=== PATIENT | female | born 1970 | race Caucasian/White ===

== ENCOUNTER → 2017-05-24 | Outpatient (CLI) | payer OTHER ==
[~2017-05-24] MED LIST: ADVA500A INH; ADVAI500I PO; ALBU6.7H INH; HYDR-3583 PO
[2017-05-24 10:03] LABS: APTT (PATIENT) 28.6 SEC (24.3-30.1); PROTHROMBIN TIME - PATIENT 10.3 SEC (9.8-11.6)
[2017-05-24 10:06] LABS: AUTOMATED NEUTROPHIL # 6.3 TH/MM3 (1.8-7.7); BASOPHIL # 0.1 TH/MM3 (0-0.2); BASOPHIL % 0.8 % (0.0-2.0); EOSINOPHIL # 0.2 TH/MM3 (0-0.4); EOSINOPHIL % 2.3 % (0.0-4.0); HEMATOCRIT 40.7 % (35.0-46.0); HEMO FLAGS DIFF FINAL; LYMPH % 15.7 % (9.0-44.0); LYMPHOCYTE # 1.3 TH/MM3 (1.0-4.8); MEAN CORPUSCULAR HEMOGLOBIN 29.2 PG (27.0-34.0); MEAN CORPUSCULAR HGB CONC 33.5 % (32.0-36.0); NEUT % 76.2 % (16.0-70.0); PLATELET COUNT 266 TH/MM3 (150-450); RED BLOOD COUNT 4.68 MIL/MM3 (4.00-5.30); RED CELL DISTRIBUTION WIDTH 14.1 % (11.6-17.2); WHITE BLOOD COUNT 8.3 TH/MM3 (4.0-11.0)
[2017-05-24 10:06] LABS: BACTERIA, URINE RARE /hpf; BLOOD, URINE TRACE (NEG); COMMENT (UR) CULT NOT INDICATED; CULTURE IF INDICATED CULT NOT INDICATED; GLUCOSE,URINE NEG (NEG); KETONE, URINE NEG (NEG); MUCUS URINE FEW /lpf (OCC); NITRITE,URINE NEG (NEG); URINE COLOR LIGHT-YELLOW (YELLW/STRAW)
[2017-05-24 10:43] LABS: ANION GAP 8 MEQ/L (5-15); AST (GOT) 18 U/L (15-37); BICARBONATE 28.3 MEQ/L (21.0-32.0); BLOOD UREA NITROGEN 15 MG/DL (7-18); CHLORIDE 99 MEQ/L (98-107); GLOMERULAR FILTRATION RATE 72 ML/MIN (>89); GLUCOSE,FASTING 122 MG/DL (74-99); SODIUM (NA) 135 MEQ/L (136-145)
[2017-05-24 10:44] LABS: ALT (GPT) 30 U/L (10-53)
[2017-05-24 10:47] LABS: ALKALINE PHOSPHATASE 81 U/L (45-117); TOTAL BILIRUBIN ADULT 0.5 MG/DL (0.2-1.0)
--- NOTE | 2017-05-24 10:53 | RADRPT ---
EXAM DATE/TIME: 05/24/2017 10:12 [facility] COMPARISON: No previous studies available for comparison. INDICATIONS : Evaluate for pneumonia, pneumothorax or communicable disease. Pre op neck surgery. MEDICAL HISTORY : asthma SURGICAL HISTORY : None. ENCOUNTER: Initial ACUITY: 1 day PAIN SCORE: 0/10 LOCATION: Bilateral chest FINDINGS: PA and lateral views of the chest demonstrate the lungs to be symmetrically aerated without evidence of mass, infiltrate or effusion. The cardiomediastinal contours are unremarkable. Osseous structure s are intact. CONCLUSION: No acute disease. Suresh Angulo MD on May 24, 2017 at 10:50 Board Certified Radiologist. This report was verified electronically.
[2017-05-24 11:35] LABS: MRSA PCR NEGATIVE (NEGATIVE); STAPH AUREUS PCR NEGATIVE (NEGATIVE)
--- NOTE | 2017-05-24 22:27 | EKG ---
Date Performed: 05/24/2017 Time Performed: 09:31:52 PTAGE: 46 years EKG: Sinus rhythm NORMAL ECG NO PREVIOUS TRACING DOCTOR: Marline Cason Interpretating Date/Time 05/24/2017 22:26:53
== END ==
LOC: CPRE 09:04
PROVIDERS: ATTEND Neurological Surgery
DX: Z01.812 Encounter for preprocedural laboratory examination (principal); Z01.811 Encounter for preprocedural respiratory examination; Z01.810 Encounter for preprocedural cardiovascular examination; M48.02 Spinal stenosis, cervical region; Z01.818 Encounter for other preprocedural examination
CPT/HCPCS: 36415; 71020; 80053; 81001; 85025; 85610; 85730; 87640; 87641; 93005

== ENCOUNTER 2017-05-27 11:05 | Observation (INO) | payer OTHER ==
[~2017-05-27] VITALS: Ht 157.5 cm; Wt 90.1 kg
[~2017-05-27 11:05] MED LIST changes: -ADVAI500I PO; +GELFOAM SIZE 100 ONE; +GENTAMICIN SULFATE 80 MG/2 ML VIAL ONE; -HYDR-3583 PO; +MICROFIBRILLAR COLLAGEN HEMOSTAT 70 X 35 MM BANDAGE ONE; +THROMBIN (TOPICAL) 5,000 UNIT VIAL ONE; +ceFAZolin 2 GM PREMIX 50 ML ONE
[2017-05-27] MEDS ORDERED: ONDANSETRON HCL 4 MG/2 ML VIAL IV ONE (12:00)
[2017-05-27] MEDS ORDERED: MIDAZOLAM HCL 2 MG/2 ML VIAL IV ONE (12:00)
[2017-05-27] MEDS ORDERED: MORPHINE SULFATE 4 MG/ML INJ IV ONE (12:00)
[2017-05-27] MEDS ORDERED: LACTATED RINGER'S 1000 ML INJ 1,000 ML IV ONE (12:00)
[2017-05-27] MEDS ORDERED: SODIUM CHLOR 0.9% 250 ML INJ 250 ML ONE (12:00)
[2017-05-27] MEDS ORDERED: LIDOCAINE HCL 1% PF 5 ML SYRINGE OTHER ONE (12:00)
[2017-05-27] MEDS ORDERED: VANCOMYCIN HCL 1000 MG VIAL ONE (12:00)
[2017-05-27] MEDS ORDERED: ROCURONIUM INJ 50 MG/5 ML SYRINGE IV PUSH ONE (12:00)
[2017-05-27] MEDS ORDERED: DEXAMETHASONE SOD PHOS 4 MG/ML VIAL IV ONE (12:00)
[2017-05-27] MEDS ORDERED: PROPOFOL 200 MG/20 ML AMP IV ONE (12:00)
[2017-05-27] MEDS ORDERED: INSULIN HUMAN REGULAR 1,000 UNITS/10 ML VIAL SQ PRN (12:45)
[2017-05-27] MEDS ORDERED: LACTATED RINGER'S 1000 ML IV PRN (12:45)
[2017-05-27] MEDS ORDERED: SODIUM CHLORID 0.9% 500 ML IV PRN (12:45)
[2017-05-27] MEDS ORDERED: METOPROLOL TARTRATE 25 MG TAB PO PRN (12:45)
[2017-05-27] MEDS ORDERED: SODIUM CHLOR 0.9% 1000 ML INJ 1,000 ML IV SCH (12:45)
[2017-05-27] MEDS ORDERED: CHLORHEXIDINE GLUCONATE 2 % 1 PACK (2 CLOTHS) TOPICAL PRN (12:45)
[2017-05-27] MEDS ORDERED: VANCOMYCIN HCL 1000 MG ON-CALL/NS 250 ML IV SCH ×2 (12:45)
[2017-05-27] MEDS ORDERED: POVIDONE IODINE 5% (ANTISEPSIS KIT) 4 APPLICATIONS EACH NARE PRN (12:45)
[2017-05-27] MEDS ORDERED: PROPOFOL 500 MG/50 ML INJ 100 ML ONE (14:07)
[2017-05-27] MEDS: SODIUM CHLOR 0.9% 1000 ML INJ 1,000 ML IV SCH (14:39)
[2017-05-27] MEDS ORDERED: MORPHINE SULFATE 4 MG/ML INJ IV PUSH PRN (14:45)
[2017-05-27] MEDS ORDERED: ACETAMINOPHEN 325 MG TAB PO PRN (14:45)
[2017-05-27] MEDS ORDERED: BISACODYL 10 MG SUPP RECTAL PRN (14:45)
[2017-05-27] MEDS ORDERED: GLUCAGON 1 MG/ML VIAL OTHER PRN (14:45)
[2017-05-27] MEDS ORDERED: MENTHOL LOZENGE BUCCAL PRN (14:45)
[2017-05-27] MEDS ORDERED: DEXTROSE 50% IN WATER 50 ML VIAL(D50) IV PUSH PRN (14:45)
[2017-05-27] MEDS ORDERED: cloNIDine HCL 0.1 MG TAB PO/NG PRN (14:45)
[2017-05-27] MEDS ORDERED: RESP: ALBUTEROL 2.5 MG/3 ML NEB (PRN) INH (14:45)
[2017-05-27] MEDS: DEXAMETHASONE SOD PHOS 4 MG/ML VIAL IV PUSH SCH ×2 (15:00→20:27)
[2017-05-27] MEDS: ceFAZolin 2 GM PREMIX 50 ML IV SCH ×2 (15:00→22:12)
[2017-05-27] MEDS ORDERED: ALBUTEROL SULFATE 90 MCG/ACT HFA 8 GM INHALER INH PRN (15:00)
[2017-05-27] MEDS: INSULIN ASPART SUPPLEMENTAL SCALE SQ SCH ×2 (17:00→20:27)
[2017-05-27] MEDS ORDERED: DO NOT ADM ANY ANTICOAGULANT DRUGS PRN (18:04)
--- NOTE | 2017-05-27 18:12 | PD.OP ---
Operative Report Date of Surgery: May 27, 2017 Preoperative Diagnosis: C5-6, C6-7 cervical disk herniations Postoperative Diagnosis: C5-6, C6-7 cervical disk herniations Procedure: C5-6, C6-7 anterior cervical discectomy, interbody arthodhesis using PEEK cage filled with autologous bone graft, Simplicity plate and screws. Anesthesia: general Surgeon: Stone Sunshine Respiratory Therapy Director(s): Lu Whitney Operation and Findings: INDICATIONS FOR THE PROCEDURE Ms Dick is a 46 year-old female who presented with intractable neck pain and clinical evidence of C6 and C7 upper extremity radiculopathy. She was found to have disk herniations at C5-6 and C6-7. She has failed maximum nonsurgical management including multiple modalities of conservative treatment as well as pain management interventions by an interventional pain specialist. A surgical decompression and arthrodhesis were indicated. The [id number] details of the procedure, indications, alternatives, risks and potential complications were fully discussed with the patient. The patient fully understood. All The questions were answered. No guarantees were given. The patient voiced requesting the procedure and provided informed consents. The patient was offered the alternative of delaying the procedure and continuing with nonsurgical management. DETAILS OF THE SURGICAL PROCEDURE After the induction of general anesthesia, endotracheal intubation was performed. A Avendano catheter, bilateral JONATHAN hose, and sequential compression devices were placed and kept throughout the procedure. Placement of electrodes for neurophysiological monitoring of the somato sensorial evoked potentials. motor evoked potentials, and EMG as well as laryngeal nerve monitoring was achieved. The patient was positioned supine on a Camden table with the head over a gel doughnut. All pressure points were carefully padded with eggcrate mattress. The eyes were tapped shut after ointment was applied by the anesthesiologist to prevent corneal abrasion. A Colin hugger was placed over the exposed lower body to maintain control of the core body temperature. The electrophysiological team placed the needles and electrodes in their proper location and baseline SSEP's and motor evoked potentials were registered prior and after positioning and endotracheal intubation. The anterior cervical region was prepped and draped in the usual sterile fashion. A localizing x-ray was performed with a C-arm. The surgical procedure was performed in several steps as follow: SURGICAL APPROACH A skin incision was made along the inferior cervical crease with a #10 blade. The dissection was carried out through the platysma exposing the sternocleidomastoid muscle. The cervical spine was approached following the fascial layers of the neck just medial to the anterior border of the sternocleidomastoid and carotid sheath by a combination of sharp and dull dissection. The omohyoid muscle was identified and carefully dissected laterally and the deep cervical fascia was carefully opened. The longus colli muscles were retracted to each side of the midline. A marker was placed at the disc space C5-6 and a cross-table lateral x-ray performed with a C-arm. SURGICAL DECOMPRESSION In order to decompress the anterior surface of the spinal cord it was necessary to preform a microsurgical resection of the disk at C5-6 and C6-7. At this point in the procedure the operating microscope was draped in the usual sterile fashion and brought to the field. The rest of the surgical procedure was performed using microdissection technique with the exception of the closure. Under the operative microscopic, a self-retaining retractor was placed underneath the longus colli muscle. Anterior osteophite spurs werte carefully removed with the Leksell. The annulus at C5-6 and C6-7 were incised with a #15 blade and microdiscectomy was then carefully carried out using angled curets and pituitary forceps. There were osteophitic/disk herniation complexes mass effect and compression of the dural sac and nerve roots. The posterior longitudinal ligament was then elevated with an angled curet and incised with a 15 bladed knife. A careful resection of the posterior longitudinal ligament was carried out using a thin footplate 2 mm Kerrison. A nerve hook was used to assess the epidural space behind the vertebral bodies C5, C6, and C7 in search for residual disk fragments. The margins of the posterior endplates at C5-6 and C6-7 were carefully drilled and undercut with a TPS drill under high magnification. The decompression was then carried out laterally, and a bilateral foraminotomy was performed with a 2mm thin foot Kerrison. Then the vertebral bodies above and below the disk space were undercut using a 2 mm thin foot Kerrison. The epidural space was the systematically assessed with a nerve hook in search for disk fragments of scarr tissue. An excellent decompression was achieved in both, the dural sac and bilateral exiting nerve roots. The incision was then irrigated with a large amount of antibiotic solution INTERBODY ARTHRODHESIS In order to avoid collapse of the disk space which would result in bilateral foraminal stenosis, and to increase the chances of a successful fusion, it was necessary to place an interbody cage filled with autologous bone. At this point of the procedure, the superior and inferior endplates were then evenly decorticated with a TPS drill. The use of a drill in combination with a curette allowed me to systematically remove the cartilaginous endplates, exposing healthy bone for the interbody arthrodesis. Fourteen millimeters distraction pins were then placed at the vertebral bodies adjacent to the disk space, and gentle distraction was applied. The size of the interbody cage was then assessed using different size spacers, and a rasp was used to ensure no residual cartilage. A PEEK cage of the appropriate size was selected, and the interbody arthrodesis was then preformed by carefully impacting a PEEK cage filled with autologous bone graft to the disc spaces C5-6 and C6-7. A 6mm cage was used at C5-6, and a 7mm cage was used at C6-7. An excellent position of the cage was achieved. This was was confirmed anatomically by feeling the space posterior to the implant and distance to the anterior surface of the dural sac. Radiological confirmation of the position was performed with a cross lateral xray performed with the C-arm. INTERNAL INSTRUMENTAL FIXATION At this point of the procedure, the distance between the vertebral bodies was carefully measures, and a Simplicity plate was brought to the field and presented in front of the vertebral bodies C5, C6, and C7. Chemical Packager holes were then drilled using the TPS drill, and the plate was then secured to the spine using self-drilling, self-tapping screws. Initially, the inferior right screw was inserted, followed by placement of the contralateral upper screw. The remanding screws were sequentially placed in a contra-lateral fashion. A proper purchase was achieved with all screws and the position of the cage, plate and screws, and alignment of the spine was assessed anatomically by direct visualization, and radiologically by performing a cross lateral xray of the cervical spine with the C-arm. CLOSURE The incision was irrigated with several liters of antibiotic solution. Hemostasis was achieved with a bipolar. The screws were locked to prevent backing out. A 7 mm Camden-Moreira drain was left in the prevertebral space and externalized through a separate stab incision. The incision was then closed in layers. 3-0 Vicryl with interrupted sutures was used to close the platysma and subcutaneous tissue. The skin was closed with 4-0 running subcuticular Vicryl and glue was applied to the skin. The drain was secured with a 3-0 nylon. At the end of the procedure the sponge, needle and instrument counts were all correct. The estimated blood loss was less than 70 cc or less. No blood transfusion was given. No intraoperative complications occurred. The patient received prophylactic antibiotics. The patient was then extubated and transferred to the recovery room in stable condition. Stone Sunshine MD May 27, 2017 18:12
[2017-05-27] MEDS ORDERED: HYDR-3583 PO (18:53)
--- NOTE | 2017-05-27 19:19 | RADRPT ---
EXAM DATE/TIME: 05/27/2017 14:47 [facility] COMPARISON: No previous studies available for comparison. INDICATIONS : Fusion C5,C6 and C6,C7 with screw and plate placement. MEDICAL HISTORY : asthma SURGICAL HISTORY : ENCOUNTER: Initial ACUITY: 1 day PAIN SCORE: Non-responsive. LOCATION: Cervical spine. FINDINGS: The patient is status post anterior cervical fusion from C5 through C7. Fusion hardware appears to be in good position. CONCLUSION: Status post anterior cervical fusion from C5 through C7 with hardware in good position. Daniel Casey MD on May 27, 2017 at 19:16 Board Certified Radiologist. This report was verified electronically.
[2017-05-27] MEDS: DOCUSATE SODIUM 100 MG CAP PO SCH (20:27)
[2017-05-27] MEDS: ACETAMINOPHEN/HYDROcodone 325 MG/10 MG TAB PO PRN (20:28)
[2017-05-27] MEDS: CHLORHEXIDINE GLUCONATE 4% SOLN 120 ML BTL TOP SCH (21:00)
[2017-05-27] MEDS: ONDANSETRON HCL 4 MG/2 ML VIAL IV PRN (22:11)
[2017-05-27] MEDS: BUDESONIDE-FORMOTEROL 160/4.5 MCG INHALER INH SCH (22:18)
[2017-05-28] VITALS (8 sets, daily range): BP systolic 118–168; BP diastolic 66–91; PULSE 94–99; RESP 16–18; TEMP 95.8–98.1; O2SAT 95–98
[2017-05-28] MEDS: DEXAMETHASONE SOD PHOS 4 MG/ML VIAL IV PUSH SCH ×4 (02:40→21:31)
[2017-05-28] MEDS: ACETAMINOPHEN/HYDROcodone 325 MG/10 MG TAB PO PRN ×2 (02:41→21:31)
[2017-05-28] MEDS: SODIUM CHLOR 0.9% 1000 ML INJ 1,000 ML IV SCH ×4 (02:46→21:27)
[2017-05-28] MEDS: ONDANSETRON HCL 4 MG/2 ML VIAL IV PRN ×2 (05:08→11:22)
[2017-05-28] MEDS: ceFAZolin 2 GM PREMIX 50 ML IV SCH (07:41)
[2017-05-28] MEDS: PANTOPRAZOLE SODIUM 40 MG VIAL IVP SCH (08:00)
[2017-05-28] MEDS: INSULIN ASPART SUPPLEMENTAL SCALE SQ SCH ×4 (08:00→21:00)
[2017-05-28] MEDS: PANTOPRAZOLE SOD 40 MG DELAYED RELEASE TAB PO SCH (08:01)
[2017-05-28] MEDS: DOCUSATE SODIUM 100 MG CAP PO SCH ×2 (08:01→21:31)
[2017-05-28] MEDS: MAGNESIUM HYDROXIDE SUSP 30 ML CUP PO PRN ×2 (08:07→21:31)
[2017-05-28] MEDS: BUDESONIDE-FORMOTEROL 160/4.5 MCG INHALER INH SCH ×2 (08:10→21:31)
[2017-05-28] MEDS: MORPHINE SULFATE 4 MG/ML INJ IV PUSH PRN ×2 (10:35→15:45)
--- NOTE | 2017-05-28 12:30 | HHI.NSPN ---
History Interval History 05/28 Patient has nausea. She endorses difficulties with swallowing liquids. Exam Results Vital Signs Date Time Temp Pulse Resp B/P (MAP) Pulse Ox O2 Delivery O2 Flow Rate FiO2 05/28/17 11:20 97.3 99 17 139/77 (97) 98 05/28/17 10:16 21 05/27/17 23:47 Nasal Cannula 2.00 Intake and Output 05/28/17 05/28/17 05/29/17 08:00 16:00 00:00 Intake Total 240 ml Output Total 10 ml 15 ml Balance 230 ml -15 ml Physical Examination Gen: Patient is up walking with physical therapy. Mild distress. Neck: Neck is supple. Trachea is midline. Cervical collar is in place Motor: Limited exam as patient is ablating with physical therapy. Given all extremities symmetrically. Lab, Micro, Other Results Allergies Coded Allergies Type Severity Reaction Last Updated Verified No Known Allergies Allergy Unknown 05/27/17 No Recent Impressions Cervical Spine X-Ray 05/27/17 0000 Signed Impressions: Service Date/Time: Saturday, May 27, 2017 14:47 - CONCLUSION: Status post anterior cervical fusion from C5 through C7 with hardware in good position. Daniel Casey MD 05/26/17 05/26/17 05/27/17 05/27/17 05/28/17 05/28/17 06:00 18:00 06:00 18:00 06:00 18:00 Intake Total 1600 ml 290 ml Output Total 475 ml 40 ml 15 ml Balance 1125 ml 250 ml -15 ml Intake Oral 240 ml IV Total 50 ml Other 1600 ml Output Urine Total 400 ml Drainage Total 40 ml 15 ml Estimated Blood Loss 75 ml # Voids 2 # Bowel Movements 0 Orders Procedure Category Date Status Time Microfib Cyndi MED 05/27/17 Complete Hemostat Bandage 06:53 Thrombin Top Soln MED 05/27/17 Complete (Thrombin Top Soln) 06:53 Cefazolin 2 Gm Premix MED 05/27/17 Complete (Ancef 2 Gm Premix 06:53 Gelfoam 100 Top MED 05/27/17 Complete (Gelfoam 100 Top) 06:54 Gentamicin Inj MED 05/27/17 Complete (Gentamicin Inj) 06:54 Gelfoam 100 Top MED 05/27/17 Complete (Gelfoam 100 Top) 09:58 Sodium Chlor 0.9% 250 MED 05/27/17 Complete Ml Inj (Ns 250 Ml 12:00 Vancomycin Inj MED 05/27/17 Complete (Vancomycin Inj) 12:00 Lactated Ringer's MED 05/27/17 Complete 1000 Ml Inj (Lr 1000 M 12:45 Sodium Chlorid 0.9% MED 05/27/17 Complete 500 Ml Inj (Ns 500 M 12:45 Metoprolol Tartrate MED 05/27/17 In Process (Lopressor) 12:45 Povidone Iod 5% MED 05/27/17 In Process Antisepsis Kit 12:45 Chlorhexidine 2% MED 05/27/17 In Process Cloth (Chlorhexidine 12:45 Insulin Human Regular MED 05/27/17 In Process Inj (Novolin R Inj 12:45 Vancomycin Inj MED 05/27/17 Complete (Vancomycin Inj) 12:45 Sodium Chlor 0.9% MED 05/27/17 Complete 1000 Ml Inj (Ns 1000 M 12:45 Propofol 500 Mg/50 Ml MED 05/27/17 Complete Inj (Diprivan 500 14:07 Sodium Chlor 0.9% MED 05/27/17 In Process 1000 Ml Inj (Ns 1000 M 14:39 Place In Observation ADMITTING 05/27/17 Transmitted 14:39 Vital Signs (Adult) W[facility] 05/27/17 Complete 14:39 Neuro Checks W[facility] 05/27/17 In Process 14:39 Activity Oob Ad Blanca WIL[facility] 05/27/17 In Process 14:39 Intake + Output WILSON 05/27/17 Complete 14:39 Remove Urinary W[facility] 05/27/17 In Process Catheter 14:39 Scd / [place]ar / Foot Pump W[facility] 05/27/17 In Process 14:39 Change Dressing WILSON 05/28/17 In Process 14:39 Diet Heart Healthy DIET 05/27/17 Transmitted Dinner Cefazolin 2 Gm Premix MED 05/27/17 Complete (Ancef 2 Gm Premix 15:00 Bisacodyl Supp MED 05/27/17 In Process (Dulcolax Supp) 14:45 Docusate Sodium MED 05/27/17 In Process (Colace) 21:00 Magnesium Hydroxide MED 05/27/17 In Process Liq (Milk Of Magnesi 14:45 Pantoprazole MED 05/28/17 In Process (Protonix) 09:00 Pantoprazole Inj MED 05/28/17 In Process (Protonix Inj) 09:00 Ondansetron Inj MED 05/27/17 In Process (Zofran Inj) 14:45 Acetamin-Hydrocod MED 05/27/17 In Process 325-10 Mg ([place] 10-32 14:45 Acetamin-Hydrocod MED 05/27/17 In Process 325-10 Mg ([place] 10-32 14:45 Morphine Inj MED 05/27/17 In Process (Morphine Inj) 14:45 Morphine Inj MED 05/27/17 In Process (Morphine Inj) 14:45 Cyclobenzaprine MED 05/27/17 In Process (Flexeril) 14:45 Dexamethasone Inj MED 05/27/17 In Process (Decadron Inj) 15:00 Clonidine (Catapres) MED 05/27/17 In Process 14:45 Acetaminophen MED 05/27/17 In Process (Tylenol) 14:45 Menthol Ernestina ([place] MED 05/27/17 In Process Ernestina) 14:45 Albuterol Neb MED 05/27/17 In Process (Albuterol Neb) 14:45 Resp Incentive RSP 05/27/17 Logged Spirometry 14:39 Consult Pt Eval & PT 05/27/17 Logged Treat 14:39 [place]oula J Collar ORTHO 05/27/17 Logged 14:39 ^ [place]ata[place]oula Collar [facility]SON 05/27/17 In Process 14:39 Chlorhexidine 4% Top MED 05/27/17 In Process Soln (Hibiclens 4% 21:00 Blood Glucose Goal W[facility]SON 05/27/17 In Process (Criteria) 14:39 Hypoglycemia 70 Mg/Dl WILSON 05/27/17 In Process Or < 14:[address]: Kaley W[facility] 05/27/17 In Process 14:39 Dextrose 50% In [place] MED 05/27/17 In Process (Vial) Inj (D50w (Vi 14:45 Glucagon Inj MED 05/27/17 In Process (Glucagon Inj) 14:45 Insulin Aspart MED 05/27/17 In Process Supplemtl Scale 17:00 ^ Blade Drain ([place] [facility]IL[facility] 05/27/17 In Process Moreira) 14:39 Albuterol Hfa Inh MED 05/27/17 In Process (Proair Hfa Inh) 15:00 Budeson-Formot MED 05/27/17 In Process 160-4.5 Mcg Inh 21:00 Urinary Catheter [facility] 05/27/17 Complete Management 15:49 Sds Pre Op Care [facility] 05/27/17 Complete Fluoroscopy,[facility] 05/27/17 Taken To 1 Hr Spine, Cervical - Ltd [facility] 05/27/17 Resulted (Ap&Lat) Misc Nursing MED 05/27/17 In Process Information 18:04 Instruction [facility] 05/27/17 In Process 18:57 Resp Request For RSP 05/27/17 Logged Service Document [facility] 05/27/17 In Process 18:57 Anticoagulant Alert [facility] 05/27/17 In Process 18:57 ^ Sling [facility] 05/27/17 In Process 18:57 Class Iv Pacu Ea 30 [facility] 05/27/17 Complete MIN General/Pacu [facility] 05/27/17 Complete Post Anesthesia Oxygen [facility] 05/27/17 Complete [employer] Request For ORTHO 05/27/17 Logged Service 22:12 [employer] Request For ORTHO 05/27/17 Logged Service 22:52 Brace [place] Collar ORTHO 05/27/[address] ORTHO 05/27/17 Complete Sling Cradle Arm ORTHO 05/28/17 Complete Vital Signs Date Time Temp Pulse Resp B/P (MAP) Pulse Ox O2 Delivery O2 Flow Rate FiO2 05/28/17 11:20 97.3 99 17 139/77 (97) 98 05/28/17 10:16 96 21 05/28/17 08:00 98.1 95 18 143/79 (100) 97 05/28/17 04:23 16 05/28/17 04:00 95.8 95 16 168/91 (116) 95 05/28/17 03:54 17 05/28/17 00:00 97.1 96 18 137/88 (104) 97 05/27/17 23:47 Nasal Cannula 2.00 05/27/17 18:45 102 18 145/71 (95) 97 Nasal Cannula 2 05/27/17 18:30 98 18 143/72 (95) 96 Nasal Cannula 2 05/27/17 18:15 100 18 144/78 (100) 96 Nasal Cannula 2 05/27/17 18:06 98.5 100 18 159/76 (103) 97 Nasal Cannula 2 Medical Decision Making Impression and Plan Ms Dick is a 46 year-old female who has cervical disc herniations at the C5- C6 and C6-C7 levels. She presented with radicular neck pain. POD1 s/p C5-C7 ACDF Neuro: Neurologically intact with no acute issues. Cervical spine x-ray show good stable alignment. Continue BLADE drain. We will remove when output decreases tomorrow Dysphagia: Secondary to postoperative edema. We expect this to improve in time Advance diet as tolerated Nausea: Nausea secondary to dysphagia, medication Zofran prn Pain: controlled on oral pain medication Disposition: Anticipate discharge on POD 2 if dysphagia and nausea resolve Jimi Alonso MD May 28, 2017 12:29
[2017-05-28] MEDS: CHLORHEXIDINE GLUCONATE 4% SOLN 120 ML BTL TOP SCH (21:00)
[2017-05-29 00:22] VITALS: BP 133/69; PULSE 94; RESP 18; TEMP 97.8; O2SAT 98
[2017-05-29] MEDS: CYCLOBENZAPRINE HCL 10 MG TAB PO PRN ×2 (00:27→08:26)
[2017-05-29] MEDS: DEXAMETHASONE SOD PHOS 4 MG/ML VIAL IV PUSH SCH ×3 (02:19→15:00)
[2017-05-29] MEDS: ACETAMINOPHEN/HYDROcodone 325 MG/10 MG TAB PO PRN ×3 (05:26→14:58)
[2017-05-29] MEDS: INSULIN ASPART SUPPLEMENTAL SCALE SQ SCH ×2 (07:18→08:29)
[2017-05-29] MEDS: SODIUM CHLOR 0.9% 1000 ML INJ 1,000 ML IV SCH (07:18)
[2017-05-29] MEDS: PANTOPRAZOLE SODIUM 40 MG VIAL IVP SCH (07:19)
[2017-05-29 08:22] VITALS: BP 143/81; PULSE 83; RESP 18; TEMP 96; O2SAT 95
[2017-05-29] MEDS: DOCUSATE SODIUM 100 MG CAP PO SCH (08:25)
[2017-05-29] MEDS: MAGNESIUM HYDROXIDE SUSP 30 ML CUP PO PRN (08:25)
[2017-05-29] MEDS: PANTOPRAZOLE SOD 40 MG DELAYED RELEASE TAB PO SCH (08:25)
[2017-05-29] MEDS: BUDESONIDE-FORMOTEROL 160/4.5 MCG INHALER INH SCH (08:29)
[2017-05-29 11:58] VITALS: BP 121/72; PULSE 92; RESP 18; TEMP 97.4; O2SAT 93
--- NOTE | 2017-05-29 13:38 | HHI.DS ---
Discharge Summary Admission Date May 27, 2017 at 14:41 Discharge Date: May 29, 2017 Admitting Diagnosis Cervical spondylosis (1) Cervical spondylosis with radiculopathy ICD Code: M47.22 - Other spondylosis with radiculopathy, cervical region Procedures Anterior cervical discectomy and fusion, level C5-C7 Brief History Ms Dick is a 46 year-old female who has cervical disc herniations at the C5- C6 and C6-C7 levels. She presented with radicular neck pain that has been refractory to conservative medical management. PE at Discharge General: Patient is in no acute distress HEENT: Head is normocephalic atraumatic. Neck is supple. Trachea is midline. Cervical collars in place. CV: Regular rate and rhythm Pulmonary: Clear to constipation bilaterally Abdomen: Soft, nontender, nondistended Extremity: No edema Integument: Incision is well approximated. No erythema. Neuro: Patient is alert and oriented 3. Speech is clear, appropriate and non- aphasic. Motor strength testing is 5/5 to all muscle groups tested. Deep tendon reflexes are 2+ at the biceps, and patella. Ch's reflex negative. Clonus negative. Hospital Course Patient was admitted on 05/27/17 and underwent a C5-C7 anterior cervical discectomy and fusion. The details of the surgery please refer to the operative note. Postoperatively the patient had pain and nausea. Her symptoms of pain had improved with [place] and Flexeril. Her nausea was self resolving after 48 hours. She remained full strength. She has been cleared by PT for discharge. Pt Condition on Discharge: Good Discharge Disposition: Discharge Home Discharge Instructions DIET: Follow Instructions for: As Tolerated, No Restrictions Speech Therapy-Diet Recommenda: Regular ACTIVITIES You can perform: Shower Only-No Bath Activities to Avoid: Lifting/Bending, Strenuous Activity, Driving Jimi Alonso MD May 29, 2017 13:38
== END 2017-05-29 15:36 | disposition home or self-care (01) ==
LOC: HSDC 11:05 → HSDI 14:41 → N06B 18:53
PROVIDERS: ADMIT Neurological Surgery; ATTEND Neurological Surgery
DX: M50.222 Other cervical disc displacement at C5-C6 level (principal); M50.223 Other cervical disc displacement at C6-C7 level; M54.10 Radiculopathy, site unspecified; R13.10 Dysphagia, unspecified; R11.0 Nausea; R60.0 Localized edema; J45.909 Unspecified asthma, uncomplicated
CPT/HCPCS: 00600; 20936; 22551; 22552; 22853; 72040; 76000; 82948; 94150; 97116; 97162; C1713; C9113; G0378; G8987; G8988; J0690; J1100; J1580; J1815; J2250; J2270; J2405; J3010; J3370; J7030; J7050; J7120; L0150; L0172